=== PATIENT | male | born 1935 | race Caucasian/White ===

== ENCOUNTER 2020-07-09 15:32 | Observation (INO) | payer MEDICARE, OTHER ==
[2020-07-09] MEDS ORDERED: Nitroglycerin 2% Ointment 1 INCH/1 GM Packet ONE (16:35)
[2020-07-09 16:56] LABS: PTT 67.5 sec (22.0-33.0); Prothrombin Time 11.4 sec (9.5-12.1)
[2020-07-09] MEDS ORDERED: Nitroglycerin 0.4 MG TAB (25 Tab Bottle) SL PRN (18:26)
[2020-07-09] MEDS ORDERED: Acetaminophen 325 MG TAB PO PRN (18:28)
[2020-07-09] MEDS ORDERED: Bisacodyl 5 MG TAB PO PRN (18:28)
[2020-07-09] MEDS ORDERED: Guaifenesin DM 100-10/5 ML UDCUP PO PRN (18:28)
[2020-07-09] MEDS ORDERED: Dextrose 50% Abboject 50 ML SYRINGE SLOW IVP PRN (18:50)
[2020-07-09] MEDS ORDERED: Dextrose 5% in Water 1,000 ML IV PRN (18:50)
[2020-07-09] MEDS ORDERED: Communication Order-Pharmacy FS SCH (19:00)
[2020-07-09] MEDS ORDERED: Morphine 2 MG/ML VIAL SLOW IVP PRN (19:47)
[2020-07-09 19:48] VITALS: BMI 30.3
[2020-07-09 20:24] LABS: Troponin I Less than 0.010 ng/mL (< 0.028)
[2020-07-09] MEDS: Simvastatin 10 MG TAB PO SCH (21:30)
[2020-07-09] MEDS ORDERED: Heparin 10,000 UNITS/ 10 ML VIAL SLOW IVP SCH (21:30)
[2020-07-09] MEDS ORDERED: Heparin 25,000 units/D5W 500 ML IV SCH (21:30)
[2020-07-09] MEDS: Carvedilol 3.125 MG TAB PO SCH (21:30)
[2020-07-09 23:11] LABS: PTT 135.2 sec (22.0-33.0)
[2020-07-10] MEDS: Ondansetron PF 4 MG/2 ML Vial IVP PRN (04:09)
[2020-07-10 05:04] LABS: #Eosinphils 0.1 10x3/uL (0.0-0.5); #Monocytes 0.6 10x3/uL (0.0-1.1); #Neutrophils 8.2 10x3/uL (1.5-8.4); %Basophils 0.4 % (0.0-2.0); %Eosinophils 1.1 % (0.0-6.0); %Lymphocytes 10.9 % (18.0-47.0); %Monocytes 5.8 % (0.0-10.0); %Neutrophils 81.3 % (40.0-75.0); Hemoglobin 14.2 g/dL (13.5-17.5); Mean Corpuscular HGB CONC 33.8 g/dL (32.0-36.0); Mean Corpuscular Hemoglobin 31.6 pg (27.0-33.0); Mean Corpuscular Volume 93.5 fl (81.2-95.1); Mean Platelet Volume 9.8 fl (7.4-10.4); Platelet Count 191 10x3/uL (150-450); RBC Distribution Width 14.8 % (11.5-14.5); Red Blood Cell (RBC) Count 4.49 10x6/uL (4.32-5.72); White Blood Cell (WBC) Count 10.1 10x3/uL (3.5-10.5)
[2020-07-10 05:18] LABS: PTT 62.6 sec (22.0-33.0); Prothrombin Time 11.4 sec (9.5-12.1)
[2020-07-10 05:20] LABS: ALT (SGPT) 27 U/L (8-55); AST (SGOT) 22 U/L (5-34); Albumin 3.9 g/dL (3.4-4.8); Alkaline Phosphatase 62 U/L (40-110); Anion Gap 13 mmol/L (10-20); BUN (Urea Nitrogen) 18 mg/dL (8.4-25.7); Bilirubin, Total 0.5 mg/dL (0.2-1.2); Calc. Creatinine Clearance 73 mL/min (70-130); Calcium 10.2 mg/dL (7.8-10.44); Carbon Dioxide 26 mmol/L (23-31); Cardiac Risk 5.6 (Less than 4.5); Chloride 106 mmol/L (98-107); Cholesterol 175 mg/dl (< 200 Desired); Globulin 2.8 g/dL (2.4-3.5); Glucose 178 mg/dL (83-110); HDL Cholesterol 31 mg/dL (>60 Neg Risk); LDL Cholesterol, Calculated 107 mg/dL; Protein, Total 6.7 g/dL (5.8-8.1); Sodium 141 mmol/L (136-145); Triglycerides 183 mg/dL (Less than 150)
[2020-07-10] MEDS ORDERED: Lidocaine 1% PF 5 ML VIAL ONE ×2 (08:01→08:59)
[2020-07-10] MEDS ORDERED: Nitroglycerin 50 MG/250 ML BOT 250 ML ONE (08:01)
[2020-07-10] MEDS ORDERED: Adenosine 6 MG/2 ML VIAL ONE (08:02)
[2020-07-10] MEDS ORDERED: Heparin 10,000 UNITS/ 10 ML VIAL ONE (08:02)
[2020-07-10] MEDS ORDERED: Verapamil 5 MG/2 ML VIAL ONE (08:02)
[2020-07-10] MEDS ORDERED: Bivalirudin 250 MG VIAL ONE (08:03)
[2020-07-10] MEDS ORDERED: Sodium Chloride 0.9% 1,000 ML ONE (08:03)
[2020-07-10] MEDS: Aspirin 81 mg Enteric Coated Tablet PO SCH (08:46)
[2020-07-10] MEDS: Carvedilol 3.125 MG TAB PO SCH ×2 (08:46→16:52)
[2020-07-10] MEDS: Lisinopril 2.5 MG TAB PO SCH (08:47)
[2020-07-10] MEDS ORDERED: Fentanyl 100 MCG/2 ML VIAL ONE (08:59)
[2020-07-10] MEDS ORDERED: Midazolam HCl 2 mg/2 ml Vial ONE (09:00)
[2020-07-10] MEDS ORDERED: Clopidogrel Bisulfate 75 MG TAB PO SCH (09:00)
[2020-07-10] MEDS: HumaLOG 300 UNITS/3 ML VIAL SC PRN ×2 (09:13→17:13)
[2020-07-10] MEDS: Sodium Chloride 0.9% 1,000 ML IV SCH ×2 (09:17→22:22)
[2020-07-10] MEDS ORDERED: Nitroglycerin 0.4 MG TAB (25 Tab Bottle) SL PRN (11:34)
[2020-07-10] MEDS ORDERED: Acetaminophen/Codeine 30-300mg Tablet PO PRN ×2 (11:34)
[2020-07-10] MEDS ORDERED: Sodium Chloride 0.9% 200 ML IV PRN (11:34)
[2020-07-10] MEDS: Simvastatin 10 MG TAB PO SCH (20:45)
[2020-07-10] MEDS ORDERED: traZODone HCl 50 MG TAB PO SCH (21:00)
[2020-07-11] MEDS: Ondansetron PF 4 MG/2 ML Vial IVP PRN (01:23)
[2020-07-11] MEDS ORDERED: Carvedilol 3.125 MG TAB PO SCH (08:00)
[2020-07-11] MEDS: Aspirin 81 mg Enteric Coated Tablet PO SCH (08:17)
[2020-07-11] MEDS: Lisinopril 2.5 MG TAB PO SCH (08:18)
[2020-07-11] MEDS ORDERED: Clopidogrel Bisulfate 75 MG TAB PO SCH (09:00)
[2020-07-11] MEDS ORDERED: Bisacodyl 10 MG SUPP PR PRN (10:43)
[2020-07-11] MEDS: HumaLOG 300 UNITS/3 ML VIAL SC PRN (12:19)
[2020-07-11 15:41] VITALS: BP 119/63; TEMP 98.6
== END 2020-07-11 15:34 | disposition home or self-care (01) ==
LOC: SUATTDRO 15:32 → CSHERS 15:32 → CSHICU 18:28 → UNDOADMOB 19:31 → INTOOBSV 19:31 → CSHICU 19:31
PROVIDERS: ADMIT Hospitalist; ATTEND Hospitalist
DX: I25.110 Atherosclerotic heart disease of native coronary artery with unstable angina pectoris (principal); I35.0 Nonrheumatic aortic (valve) stenosis; E78.5 Hyperlipidemia, unspecified; E11.9 Type 2 diabetes mellitus without complications; Z79.899 Other long term (current) drug therapy; Z79.84 Long term (current) use of oral hypoglycemic drugs
CPT/HCPCS: 74018; 80061; 82962 ×3; 84484 ×2; 85347; 85610 ×2; 85730 ×4; 92920; 93005; 93306; 93459; 94760; 96365; 96366; 96375; 96376 ×2; 97116; 97139 ×2; 99285; C1760; C1874; C1887 ×2; C9600; G0378 ×4; 36415; 36416; 80053; 84443; 85025; 92928; 99152; 99153; J0153; J0583; J1644; J1815; J2250; J2405; J3010; J7050